=== PATIENT | male | born 1940 | race Caucasian/White ===

== ENCOUNTER 2021-03-24 07:34 | Emergency (ER) | payer MEDICARE ==
[2021-03-24] MEDS ORDERED: Bacitracin 1 PK ONE (08:13)
== END 2021-03-24 08:45 | disposition home or self-care (01) ==
LOC: CSHERS 07:34
DX: T83.011A Breakdown (mechanical) of indwelling urethral catheter, initial encounter (principal); I10 Essential (primary) hypertension; Z79.82 Long term (current) use of aspirin; Z79.899 Other long term (current) drug therapy
CPT/HCPCS: 99283